=== PATIENT | male | born 1940 | race Caucasian/White ===

== ENCOUNTER 2023-03-31 10:31 | Outpatient (CLI) | payer MEDICARE, SELFPAY | END 2023-03-31 10:32 | disposition home or self-care (01) | LOC: AMB 04-16 07:34 | PROVIDERS: Visit Provider Family Medicine | DX: I61.9 Nontraumatic intracerebral hemorrhage, unspecified (principal); R41.82 Altered mental status, unspecified | CPT/HCPCS: A0425; A0427 ==

== ENCOUNTER 2023-10-22 19:50 | Outpatient (CLI) | payer MEDICARE, SELFPAY | END 2023-10-22 19:51 | disposition home or self-care (01) | LOC: AMB 10-24 14:50 | PROVIDERS: Visit Provider Student in an Organized Health Care Education/Training Program | DX: I50.9 Heart failure, unspecified (principal) | CPT/HCPCS: A0425; A0427 ==